=== PATIENT | female | born 1975 | race African-American/Black ===

== ENCOUNTER 2016-10-02 17:24 | Emergency (ER) | payer BC ==
[~2016-10-02] VITALS: Ht 167.6 cm; Wt 67.5 kg
[~2016-10-02 17:24] MED LIST: CIPRO500 MG PO; DICYCLOMINE HCL10 MG PO; ENDOCET 5-3251 EACH PO; FAMOTIDINE20 MG PO; FLAGYL500 MG PO; IRON325 M1 PO; IRON325 MG PO; KLOR-CON M2020 MEQ PO; MOTRIN800 MG PO; NOHOMEMEDS; PANTOPRAZOLE SO40 MG PO; PROVERA,CYCRIN10 MG PO
[2016-10-02 18:16] LABS: CHLORIDE 107 mEq/L (99-109); POTASSIUM 3.3 mEq/L (3.7-5.4); SODIUM 140 mEq/L (136-147)
[2016-10-02 18:17] LABS: GLUCOSE 93 mg/dL (70-99); HEMATOCRIT 23.1 % (36.0-46.0); MCH 17.5 PG (29.0-34.0); MCHC 26.4 G/DL (30.0-36.0); MCV 66.4 FL (83-99); RBC DIS.WIDTH-CV 21.2 % (11.8-14.6); RBC DIS.WIDTH-SD 48.8 % (39-53); RED BLOOD COUNT 3.48 M/uL (3.80-5.20); WHITE BLOOD COUNT 3.4 K/uL (4.1-10.2)
[2016-10-02 18:19] LABS: ANION GAP 9 MEQ/L (2-14)
[2016-10-02 18:21] LABS: GFR ESTIMATE (CALCULATED) > 59 mL/min/
[2016-10-02 18:22] LABS: UREA NITROGEN (BUN) 9 mg/dL (9-23)
[2016-10-02 18:51] LABS: PLATELET COUNT 204 K/uL (156-360)
[2016-10-02 21:52] VITALS: BP 113/74
[2016-10-02 22:13] VITALS: BP 107/74
[2016-10-02 23:04] VITALS: BP 111/74
[2016-10-02 23:38] VITALS: BP 111/74
[2016-10-03] VITALS: BP 117/77
[2016-10-03 00:21] VITALS: BP 117/79
[2016-10-03 01:21] VITALS: BP 117/73
[2016-10-03 02:23] VITALS: BP 112/73
[2016-10-03 02:25] VITALS: BP 112/73
== END 2016-10-03 02:26 | disposition home or self-care (01) ==
LOC: EME 17:24
PROC: 30233N1 Transfusion of Nonautologous Red Blood Cells into Peripheral Vein, Percutaneous Approach (ICD-10-PCS; principal; 2016-10-02)
DX: D64.9 Anemia, unspecified (principal); N93.9 Abnormal uterine and vaginal bleeding, unspecified; E87.6 Hypokalemia; D72.819 Decreased white blood cell count, unspecified
CPT/HCPCS: 80048; 85027; 86850; 86900; 86901; 86920; 99281; 99285; P9016

== ENCOUNTER 2017-12-01 21:30 | Observation (INO) | payer BC ==
[~2017-12-01] VITALS: Ht 167.6 cm; Wt 76.5 kg
[2017-12-01 22:21] LABS: CHLORIDE 103 mEq/L (99-109); POTASSIUM 3.4 mEq/L (3.7-5.4); SODIUM 139 mEq/L (136-147)
[2017-12-01 22:23] LABS: GLUCOSE 83 mg/dL (70-99)
[2017-12-01 22:25] LABS: HEMATOCRIT 26.4 % (36.0-46.0); HEMOGLOBIN 7.2 G/DL (11.9-15.5); MCH 17.6 PG (29.0-34.0); MCHC 27.3 G/DL (30.0-36.0); MCV 64.5 FL (83-99); RBC DIS.WIDTH-CV 20.5 % (11.8-14.6); RBC DIS.WIDTH-SD 46.4 % (39-53); RED BLOOD COUNT 4.09 M/uL (3.80-5.20); WHITE BLOOD COUNT 5.4 K/uL (4.1-10.2)
[2017-12-01 22:27] LABS: CREATININE 0.7 mg/dL (0.6-1.3); GFR ESTIMATE (CALCULATED) > 59 mL/min/
[2017-12-01 22:28] LABS: UREA NITROGEN (BUN) 9 mg/dL (9-23)
[2017-12-01 22:35] LABS: TROP-I INTERPRETATION NEGATIVE; TROPONIN-I < 0.01 ng/mL (0.0-0.30)
[2017-12-01 23:04] LABS: PLAT.SUFFICIENCY ADEQUATE; PLATELET COUNT 143 K/uL (156-360)
[2017-12-02] VITALS (15 sets, daily range): BP systolic 112–129; BP diastolic 65–80
[2017-12-02 03:12] LABS: HEMATOCRIT 28.8 % (36.0-46.0); HEMOGLOBIN 8.2 G/DL (11.9-15.5); MCH 19.7 PG (29.0-34.0); MCHC 28.5 G/DL (30.0-36.0); PLATELET COUNT 128 K/uL (156-360); RBC DIS.WIDTH-CV 23.2 % (11.8-14.6); RBC DIS.WIDTH-SD 56.7 % (39-53); RED BLOOD COUNT 4.17 M/uL (3.80-5.20); WHITE BLOOD COUNT 6.3 K/uL (4.1-10.2)
[2017-12-02 03:13] LABS: MCV 69.1 FL (83-99)
[2017-12-02 06:40] LABS: TROP-I INTERPRETATION NEGATIVE; TROPONIN-I < 0.01 ng/mL (0.0-0.30)
[2017-12-02 14:51] LABS: HEMATOCRIT 37.2 % (36.0-46.0); MCV 71.5 FL (83-99)
[2017-12-02 15:02] LABS: HEMOGLOBIN 10.9 G/DL (11.9-15.5)
[2017-12-02 15:38] LABS: TROP-I INTERPRETATION NEGATIVE; TROPONIN-I 0.01 ng/mL (0.0-0.30)
== END 2017-12-02 16:00 | disposition home or self-care (01) ==
LOC: EME 21:30 → EDOF 12-02 05:36 → ENRESERV 12-02 05:39 → 4SOUTH 12-02 07:09
PROVIDERS: Emergency Medicine; Internal Medicine; Nurse Practitioner Adult Health
PROC: 30233N1 Transfusion of Nonautologous Red Blood Cells into Peripheral Vein, Percutaneous Approach (ICD-10-PCS; principal; 2017-12-02)
DX: R00.2 Palpitations (principal); D64.9 Anemia, unspecified; E87.6 Hypokalemia; D25.9 Leiomyoma of uterus, unspecified
CPT/HCPCS: 71046; 80048; 84484; 85014; 85018; 85027; 86850; 86900; 86901; 86920; 93005; 99281; 99284; G0378; J7030; P9016